=== PATIENT | female | born 1955 | race Caucasian/White ===

== ENCOUNTER 2023-04-07 10:11 | Observation (INO) | payer MEDICARE ==
[~2023-04-07] VITALS: Ht 170.2 cm; Wt 76.8 kg
[2023-04-07] VITALS (9 sets, daily range): BP systolic 126–216; BP diastolic 61–91
[2023-04-07] MEDS ORDERED: ZESTRIL40 MG PO (10:34)
[2023-04-07] MEDS ORDERED: NAPROXEN SODIU220 MG PO (10:35)
--- NOTE | 2023-04-07 14:03 | NUR ---
medications reconciled with pharmacy record and interview
--- NOTE | 2023-04-07 14:40 | NUR ---
PT ARRIVED TO CCU VIA STRETCHER BY EDWAR MATTHEWS. BEDSIDE REPORT RECEIVED. 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 PT HAS DAUGHTER AT BEDSIDE. PT ALERT AND ORIENTED TO SELF, FAMILY, AND PLACE. PT UNSURE OF DATE, EVENT, PRESIDENT. PT TEARFUL AND ANXIOUS SHE IS UNABLE TO RECALL EVENTS FROM THIS AM. 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 PT RADIAL AND PEDAL PULSES STRONG WITH CAP REFILL LESS THAN 3 SECONDS. LUNG SOUNDS CLEAR, HEART SOUND STRONG WITH SINUS RHYTHM, AND BOWEL TONES ACTIVE. PT REPORTS HEADACHE WHICH STARTED IN ED DECREASING IN PAIN. PT DENIES FURTHER PAIN OR NEEDS AT THIS TIME. CALL LIGHT WITHIN REACH.
--- NOTE | 2023-04-07 15:10 | NUR ---
NICARDIPINE DRIP STARTED PER ORDER AT 5MG/HR AND TO BE TITRATED TO MEET BP PARAMETERS. PT TOLERATING WELL. SEOND IV STARTED IN PT RIGHT WRIST. PT DENIES NEEDS AT THIS TIME. CALL LIGHT WITHIN REACH.
--- NOTE | 2023-04-07 16:31 | NUR ---
PT RESTING IN BED, CALL LIGHT WITHIN REACH, BEDRAIL UP FOR SAFETY. PT DAUGHTER REAL AT BEDSIDE. PT DENIES NEEDS AT THIS TIME. CALL LIGHT WITHIN REACH.
--- NOTE | 2023-04-07 17:15 | NUR ---
PT ASSISTED TO BATHROOM AND BACK TO BED WITH SBA. PT TOLERATED WELL. PT DENIES DIZZINESS OR HEADACHE, STATING SHE IS FEELING BETTER. PT NICARDIPINE DRIP PLACED IN STAND BY BP IS 121/78 (89). PT HAS CALL LIGHT WITHIN REACH, BEDRAIL UP FOR SAFETY, AND DAUGHTER AT BEDSIDE. PT EATING DINNER AND DENIES FURTHER NEEDS.
--- NOTE | 2023-04-07 17:35 | NUR ---
DR MEJIA INFORMED OF PT STATUS AND CURRENT BP,ADVISED TO HAVE NICARDIPINE DRIP IN STAND BY. NEW ORDERS PLACED FOR PO LISINOPRIL AND AMLODAPINE TO START THIS EVENING. NO ADDITIONAL ORDERS AT THIS TIME.
--- NOTE | 2023-04-07 18:04 | NUR ---
PT GIVEN PO MEDICATION. PT RESTING IN BED WATCHING TV. CALL LIGHT WITHIN REACH AND BEDRAIL UP FOR SAFETY. PT DENIES PAIN, DIZZINESS OR FURTHER NEEDS. PT STATED CONCERN WITH MRI MACHINE AND FEELING LIKE SHE MAY BE CLAUSTERPHOBIC. WILL DISCUSS CONCERN WITH PRIMARY RN. NO FURTHER NEEDS AT THIS TIME.
--- NOTE | 2023-04-07 20:00 | NUR ---
CARDENE DRIP TITRATED OFF PER PROTOCOL ORDER.
[2023-04-08] VITALS (7 sets, daily range): BP systolic 116–148; BP diastolic 60–87
--- NOTE | 2023-04-08 08:04 | NUR ---
PT CONCERNED ABOUT THE COST OF THE HOSPITAL STAY AND ALL THE TESTING, IN PARTICULAR THE MRI. WOULD LIKE TO TALK TO THE DR ABOUT THE ABSOLUTE NEED OR NOT OF IT. EXPLAINED WHAT EACH TEST SHOWS AND THE INDICATIONS FOR TESTS. WILL SPEAK WITH DR WHEN HE ARRIVES. ECHO IN ROOM. SPOKE WITH CM REGARDING CONCERNS.
--- NOTE | 2023-04-08 08:36 | NUR ---
SPOKE WITH DR TOSCANO CONCERNS. WILL CANCEL MRI AND ADD BUBBLE STUDY TO ECHO.
--- NOTE | 2023-04-08 10:35 | NUR ---
SPOKE WITH PT AND FAMILY EXTENSIVELY REGARDING ECHO, MEDICATIONS AND ANSWERED ALL QUESTIONS. ADMINISTERED MORNING MEDS. PT UP TO RESTROOM.
--- NOTE | 2023-04-08 10:52 | NUR ---
OCTAVIANO FROM CASE MANAGEMENT IN WITH PTRin
--- NOTE | 2023-04-08 10:58 | NUR ---
OCTAVIANO MATTHEWS FROM CASE MANAGEMENT WILL BE SENDING APPLICATION FOR [facility] FOR PT WELL CREATING FOLLOW UP APT WITH KARLIE.
--- NOTE | 2023-04-08 12:16 | NUR ---
PT WALKED AROUND ROOM BEFORE RETURNING TO BED. VS REMAINED STABLE WITH A BP OF 123/87. PT STATES SHE FEELS PRETTY GOOD, A LITTLE TIRED. LUNCH DELIVERED AND DTR STEPPED OUT TO GET HERS. PT DENIES CONCERNS OR NEEDS ATT.
--- NOTE | 2023-04-08 13:05 | NUR ---
PT WAS IN BATHROOM. UNABLE TO VISIT.
--- NOTE | 2023-04-08 13:24 | NUR ---
DR. MEJIA IN ROOM TO SEE PATIENT AT THIS TIME. PT TO D/C HOME. DISCUSSING RESULTS OF ECHO AND THAT RESULTS SHOULD GO TO HER PCP. SCRIPTS TO BE ELECTRONICALLY PUSHED TO KARLIE. PT'S DAUGHTER REMAINS IN ROOM AT THIS TIME.
[2023-04-08] MEDS ORDERED: AMLODIPINE BESYL5 MG PO (13:32)
[2023-04-08] MEDS ORDERED: CLOPIDOGREL75 MG PO (13:32)
[2023-04-08] MEDS ORDERED: LISINOPRIL20 MG PO (13:33)
[2023-04-08] MEDS ORDERED: ASPIRIN EC325 MG PO (13:42)
--- NOTE | 2023-04-11 06:33 | EKG ---
[facility] [address] [facility] [place], [place] [address] Signed Normal sinus rhythm with sinus arrhythmia Minimal voltage criteria for LVH, may be normal variant ( R in aVL ) Nonspecific T wave abnormality Abnormal ECG No previous ECGs available Confirmed by JOSE PATE MD ([id number]) on 04/11/2023 6:33:35 AM Electronically Signed By: JOSE PATE 04/11/23 0633 PATIENT NAME: SARAH ARAGON CHIRAG Electrocardiogram DATE OF : 59 PHYSICIAN: JOSE PATE REPORT #: [id number] REPORT IS CONFIDENTIAL AND NOT TO BE RELEASED WITHOUT AUTHORIZATION
== END 2023-04-08 14:30 | disposition home or self-care (01) ==
LOC: ED 10:11 → CCU 10:13
PROVIDERS: ADMIT Internal Medicine; ATTEND Internal Medicine
DX: I67.4 Hypertensive encephalopathy (principal); I10 Essential (primary) hypertension; Q21.12 Patent foramen ovale; R41.3 Other amnesia; Z79.899 Other long term (current) drug therapy
CPT/HCPCS: 36415; 70450; 70496; 70498; 71045; 80053; 81003; 85025; 85610; 85730; 93005; 93010; 93306; 96375; 99285 25; A9270; G0378; J7060; Q9967

== ENCOUNTER 2024-12-28 07:31 | Day surgery (SDC) | payer MEDICARE, OTHER ==
[~2024-12-28] VITALS: Ht 170.2 cm; Wt 72.0 kg
[~2024-12-28 07:31] MED LIST: ALDACTONE25 MG PO; AMLODIPINE BESYL5 MG PO; ASPIRIN EC325 MG PO; CLOPIDOGREL75 MG PO; DILTIAZEM ER120 MG PO; IBLOOD GLUCOSE TEST STRIP 1 EA TEST VI PRN; LACTATED RINGER'S 1,000 ML IV SCH; LIDOCAINE HCL 1% 5 ML SDV INJ ONE; LISINOPRIL20 MG PO; MIDAZOLAM HCL 5 MG/5 ML VIAL IV PRN; NAPROXEN SODIU220 MG PO; ZESTRIL40 MG PO; fentaNYL citrate 100 MCG/2 ML VIAL IV PRN
[2024-12-28 07:45] VITALS: BP 139/73
[2024-12-28] MEDS ORDERED: MIDAZOLAM HCL 5 MG/5 ML VIAL ONE (08:43)
[2024-12-28] MEDS ORDERED: fentaNYL citrate 100 MCG/2 ML VIAL ONE (08:44)
--- NOTE | 2024-12-28 09:56 | NUR ---
12/28/24 0956 Cecelia Randolph 0936 PT ARRIVED IN PACU SLEEPY. ABD SOFT. 0945 DR AT BEDSIDE. ALL QUESTIONS ANSWERED. 0955 RESTING. REU.
[2024-12-28 10:23] VITALS: BP 113/58
--- NOTE | 2024-12-28 15:52 | OR ---
[facility] [address] [place], [place] [address] Signed DATE OF OPERATION: 12/28/2024 SURGEON: Eitan Becker MD PREOPERATIVE DIAGNOSIS: History of sigmoid resection for diverticulosis, colon screening. POSTOPERATIVE DIAGNOSES: 1. Minimal diverticulosis. 2. Polyps x2. PROCEDURE: Total colonoscopy to cecum with cold morcellation polypectomy x2. ANESTHESIA: Intravenous sedation fentanyl 100 mcg, Versed 6 mg. INDICATIONS: This 69-year-old white woman is a patient of KATE Hunter at [facility]. She last underwent colonoscopy in 2010. The patient underwent sigmoid resection in 1979 for diverticular disease. She currently has no symptoms of bleeding, diarrhea, or constipation. No family history of colon cancer. She is here for a screening colonoscopy. FINDINGS: The prep was good. Complete colonoscopy was undertaken of the cecum with full intubation of the cecum. There was a small polyp in the right colon and transverse colon, both excised with cold morcellation technique. She had a few diverticula of the remaining left colon, but no other findings of note. The anastomosis was widely patent. DESCRIPTION OF PROCEDURE: The patient was brought to the endoscopy suite and placed in lateral decubitus position, given intravenous sedation to the point of slurred speech and nystagmus. Digital rectal examination was normal. An Olympus video colonoscope was passed in the rectum and manipulated throughout the colon ultimately intubating the cecum itself. The ileocecal valve and appendiceal orifice were normal. Scope was withdrawn and a mid way in the right colon was a small adenomatous appearing polyp. This was excised with cold morcellation technique. The scope was further withdrawn. Another similar polyp was noted in the transverse colon. Electronically Signed By: EITAN BECKER MD 12/28/24 1552 PATIENT NAME: SARAH ARAGON OPERATIVE REPORT DATE OF : 59 REPORT #: [id number] PHYSICIAN: EITAN BECKER MD PCP: RAUL VALLJEO PAC REPORT IS CONFIDENTIAL AND NOT TO BE RELEASED WITHOUT AUTHORIZATION [facility] [address] [place], [place] [address] Signed This also was excised with cold morcellation technique. Further withdrawal showed only a few scattered diverticula. The anastomosis was barely perceptible and widely patent. The rectum was normal. Scope was removed. The patient was taken to recovery room in good condition. CONCLUDING DIAGNOSIS: Polyps x2 and diverticulosis. PLAN: Recommend repeat colonoscopy in 7 to 10 years, sooner if symptoms should develop. She will return to the ongoing care of KATE Hunter at [facility]. MD OSMAN Wilhelm/LILLIAN /[id number] cc: KATE Hunter [facility] Copies: ~ Electronically Signed By: EITAN BECKER MD 12/28/24 1552 PATIENT NAME: SARAH ARAGON OPERATIVE REPORT DATE OF : 59 REPORT #: [id number] PHYSICIAN: EITAN BECKER MD PCP: RAUL VALLEJO PAC REPORT IS CONFIDENTIAL AND NOT TO BE RELEASED WITHOUT AUTHORIZATION
--- NOTE | 2024-12-30 13:24 | PATH ---
[facility] [address] [facility] [place] [place] [address] Signed SPECIMEN(S): A ASCENDING RIGHT COLON POLYP SPECIMEN(S): B TRANSVERSE COLON POLYP SPECIMEN SOURCE: A. ASCENDING RIGHT COLON POLYP B. TRANSVERSE COLON POLYP CLINICAL HISTORY: Diverticulosis FINAL PATHOLOGIC DIAGNOSIS: A. Ascending/right colon polyp: - Suggestive of hyperplastic polyp, negative for dysplasia. B. Transverse colon polyp: - Tubular adenoma fragments, negative for high-grade dysplasia. NA MICROSCOPIC EXAMINATION: Histologic sections of all submitted blocks are examined by light microscopy. These findings, together with the gross examination, support the pathologic diagnosis. GROSS DESCRIPTION: A. The specimen, labeled and designated "Shade, ascending/right colon polyp," is received in formalin and consists of two ingram soft tissue fragments, ranging from 0.2-0.3 cm. Entirely submitted in (A1). B. The specimen, labeled and designated "Shade, transverse colon polyp," is received in formalin and consists of two ingram soft tissue fragments, ranging from 0.3-0.4 cm. Entirely submitted in (B1). VB (under the direct supervision of a pathologist) The Gross Description was prepared using a voice recognition system. The report was reviewed for accuracy; however, sound-alike word errors, addition and/or deletions may occur. If there is any question about this report, please contact Client Services. ADDITIONAL NOTES: Immunohistochemical and/or in situ hybridization studies if performed in this case included appropriate positive controls that reacted as expected. This test was developed and its performance characteristics determined by [employer] It has not been cleared or PATIENT NAME: SARAH ARAGON PATHOLOGY DATE OF : 59 REPORT #: [id number] PHYSICIAN: LINDA PATHOLOGY PCP: RAUL VALLEJO PAC REPORT IS CONFIDENTIAL AND NOT TO BE RELEASED WITHOUT AUTHORIZATION [address] [place], [place] [address] Signed approved by the U.S. Food and Drug Administration. The FDA has determined that such clearance or approval is not necessary. This test is used for clinical purposes. It should not be regarded as investigational or for research. [employer] is certified under the Clinical Laboratory Improvement Amendments of 1988 (CLIA) as qualified to perform high complexity clinical laboratory testing. PERFORMING LABORATORY: Professional interpretation was performed by [facility], [address] [place] [address] (CLIA#: [id number]). Diagnostician: Belkis Frazier MD Pathologist Electronically Signed 12/30/2024 Copies: ~ PATIENT NAME: SARAH ARAGON PATHOLOGY DATE OF : 59 REPORT #: [id number] PHYSICIAN: LINDA PATHOLOGY PCP: RAUL VALLEJO PAC REPORT IS CONFIDENTIAL AND NOT TO BE RELEASED WITHOUT AUTHORIZATION
== END 2024-12-28 10:33 | disposition home or self-care (01) ==
LOC: DS 07:31
PROVIDERS: ATTEND Surgery
PROC: 0DBL8ZZ Excision of Transverse Colon, Via Natural or Artificial Opening Endoscopic (ICD-10-PCS; 2024-12-28)
PROC: 0DBF8ZZ Excision of Right Large Intestine, Via Natural or Artificial Opening Endoscopic (ICD-10-PCS; principal; 2024-12-28 08:15)
DX: Z12.11 Encounter for screening for malignant neoplasm of colon (principal); D12.3 Benign neoplasm of transverse colon; K63.5 Polyp of colon; K57.30 Diverticulosis of large intestine without perforation or abscess without bleeding; I10 Essential (primary) hypertension; E78.5 Hyperlipidemia, unspecified; Z79.02 Long term (current) use of antithrombotics/antiplatelets; Z79.899 Other long term (current) drug therapy; Z90.49 Acquired absence of other specified parts of digestive tract; Z90.711 Acquired absence of uterus with remaining cervical stump
CPT/HCPCS: 88305; 99153; G0500; J2250; J3010; J7121